=== PATIENT | male | born 1980 | race Hispanic/Latino ===

== ENCOUNTER 2020-06-28 12:59 | Emergency (ER) | payer SELFPAY ==
--- NOTE | 2020-06-28 14:16 | ED.PDOC ---
History of Present Illness - General Chief Complaint: Respiratory Problem Stated Complaint: congestion, cough Time Seen by Provider: 06/28/20 13:37 Source: patient, family Exam Limitations: no limitations - History of Present Illness Initial Comments: 3D SOB, COUGH, NASAL CONGESTION. NO TOBACCO USE. NO H/O ASTHMA, COPD. Timing/Duration: constant Severity: moderate Improving Factors: nothing Worsening Factors: nothing Associated Symptoms: cough, shortness of breath Allergies/Adverse Reactions: Allergies Penicillins Allergy (Verified 06/28/20 13:52) Home Medications: Ambulatory Orders Levofloxacin [Levaquin] 750 mg PO DAILY 5 Days #5 tab 06/28/20 Review of Systems - Review of Systems Constitutional: Denies: chills, fever EENTM: States: nose congestion. Denies: ear pain, throat pain Respiratory: States: cough, short of breath Cardiology: Denies: chest pain, palpitations Gastrointestinal/Abdominal: Denies: abdominal pain, nausea Genitourinary: States: no symptoms reported Musculoskeletal: Denies: back pain, joint pain, muscle pain Skin: States: no symptoms reported Neurological: States: no symptoms reported Endocrine: States: no symptoms reported Hematologic/Lymphatic: States: no symptoms reported All other Systems: Reviewed and Negative Past Medical History (General) - Patient Medical History Surgical History: no surgical history - Vaccination History Hx Influenza Vaccination: No Hx Pneumococcal Vaccination: No - Activities of Daily Living Hospice Agency (if applicable):: None - Female History Patient : No Family Medical History - Family History Mother Family History: Unknown Physical Exam - Physical Exam General Appearance: Alert, Other - UNCOMFORTABLE Eye Exam: bilateral normal Ears, Nose, Throat: hearing grossly normal, normal ENT inspection, normal pharynx Neck: non-tender, full range of motion, supple Respiratory: lungs clear, normal breath sounds, no respiratory distress Cardiovascular/Chest: regular rate, rhythm, no murmur Peripheral Pulses: radial,right: 2+, radial,left: 2+ Gastrointestinal/Abdominal: non tender, soft Rectal Exam: deferred Back Exam: no CVA tenderness Extremity: normal range of motion, normal inspection Neurologic: alert, normal mood/affect Skin Exam: normal color, warm/dry Lymphatic: no adenopathy Progress - Results/Orders Results/Orders: COVID, FLU, AND STREP NEG. CXR POS B BASILR OPACITIES, CONCERNING FOR PNE. PT'S DAUGHTER HAS SIMILAR SX (DX'D WITH STREP THROAT IN ER TODAY) AND OTHER DAUGHTER WAS JUST DX'D WITH AND TREATED FOR PNE, THUS I WILL TREAT HIM FOR PNE. PENALLERGIC (ANAPHYLAXIS), THUS UP-TO-DATE RECOMMENDS LEVAQUIN 2ND LINE RX FOR OUTPT PNE. Departure - Departure Clinical Impression: Cough Pneumonia Qualifiers: Pneumonia type: due to unspecified organism Laterality: bilateral Lung location: lower lobe of lung Qualified Code(s): J18.9 - Pneumonia, unspecified organism Dyspnea Qualifiers: Dyspnea type: shortness of breath Qualified Code(s): R06.02 - Shortness of breath Disposition: Discharge to Home or Self Care Condition: Good Departure Forms: ED Discharge - Pt. Copy, Patient Portal Self Enrollment Instructions: Pneumonia, Adult (DC) Diet: resume usual diet Activity: increase activity as tolerated Prescriptions: Levofloxacin [Levaquin] 750 mg PO DAILY 5 Days #5 tab Home Medications: Ambulatory Orders Levofloxacin [Levaquin] 750 mg PO DAILY 5 Days #5 tab 06/28/20 Additional Instructions: Please see your regular doctor or return to the ER if you breathing is not improving over the next few days.
--- NOTE | 2020-06-28 14:41 | RAD ---
EXAM DESCRIPTION: Chest,1 View CLINICAL HISTORY: 39 years Male, SOB, COUGH, NASAL CONGESTION X 3D. COMPARISON: 06/10/2007 TECHNIQUE: Single view radiograph of the chest. IMPRESSION: Normal size cardiac silhouette. Mild opacification in the lung bases may represent atelectasis although pneumonia not excluded. CT chest may further evaluate as indicated. No pleural effusion or pneumothorax. Included osseous structures intact. Electronically signed by: Trevor Hernandez MD 06/28/2020 2:39 PM CDT
[2020-06-28 15:23] VITALS: O2SAT 98
[2020-06-28 15:59] VITALS: BP 128/79; TEMP 96.6
== END 2020-06-28 15:50 | disposition home or self-care (01) ==
LOC: ER 12:59
DX: J18.9 Pneumonia, unspecified organism (principal); Z20.828 Contact with and (suspected) exposure to other viral communicable diseases; Z88.1 Allergy status to other antibiotic agents

== ENCOUNTER 2020-09-21 16:07 | Emergency (ER) | payer SELFPAY ==
[2020-09-21 17:18] VITALS: O2SAT 97
[2020-09-21] MEDS ORDERED: ACETAMINOPHEN 325 MG TAB PO ONE (18:02)
--- NOTE | 2020-09-21 18:05 | ED.PDOC ---
History of Present Illness - General Chief Complaint: General Stated Complaint: cough, body aches, sore throat Time Seen by Provider: 09/21/20 18:00 Additional Information: Patient is a 39-year-old male who presents to the ED with chief complaint of muscle aches. Patient began with a mild sore throat yesterday and today he has myalgia, generalized weakness, subjective low-grade fever and chills. Patient with an occasional dry cough but denies chest pain or shortness of breath. Negative nausea, vomiting, abdominal pain. Patient is otherwise healthy and has no medical concerns. He has not been exposed to Covid as far as he knows. - History of Present Illness Allergies/Adverse Reactions: Allergies Penicillins Allergy (Verified 09/21/20 17:19) Home Medications: Ambulatory Orders Acetaminophen [Tylenol] 650 mg PO Q6H #50 tab 09/21/20 Albuterol Inhaler [Ventolin Hfa Inhaler] 2 puff INH Q4H PRN #1 inh 09/21/20 Review of Systems - Review of Systems Constitutional: States: chills, fever EENTM: States: throat pain Respiratory: States: cough. Denies: short of breath Cardiology: Denies: chest pain, palpitations Gastrointestinal/Abdominal: Denies: abdominal pain, nausea, vomiting Genitourinary: Denies: dysuria Musculoskeletal: States: muscle pain Skin: Denies: rash All other Systems: Reviewed and Negative Past Medical History (General) - Patient Medical History Hx Congestive Heart Failure: No Hx Gastroesophageal Reflux: Yes Surgical History: no surgical history - Vaccination History Hx Influenza Vaccination: No Hx Pneumococcal Vaccination: No - Activities of Daily Living Hospice Agency (if applicable):: None - Female History Patient is a Female of Child Bearing Age (10 -59 yrs old): No Patient : No Family Medical History - Family History Mother Family History: Unknown Physical Exam - Physical Exam General Appearance: Alert, Comfortable, No apparent distress, Well Developed, Well Nourished ENT Exam: normal ENT inspection, pharynx normal Neck: non-tender, full range of motion, supple, normal inspection Respiratory: chest non-tender, lungs clear, normal breath sounds, no respiratory distress, no accessory muscle use Cardiovascular/Chest: regular rate, rhythm, no edema, no gallop, no JVD, no murmur Extremity: non-tender, normal inspection Neurologic: 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 09/21/20 18:38 Patient reassessed and is feeling slightly better at this time. His chest x-ray is clear but he is Covid positive. I will discharge with Tylenol and albuterol and patient to rest and follow-up with his PCP. Vital signs stable, patient is NAD and looks clinically well and I believe is safe for discharge with outpatient follow-up. Follow-up instructions, discharge instructions and return to ED precautions discussed with patient. Patient voices understanding and willingness to comply with instructions. All laboratory and radiographic results have been discussed with the patient, and all questions answered. Patient is happy with plan. Departure - Departure Clinical Impression: COVID-19 Time of Disposition: 18:39 Disposition: Discharge to Home or Self Care Condition: Good Departure Forms: ED Discharge - Pt. Copy, Patient Portal Self Enrollment Instructions: Coronavirus Disease 2019 (COVID-19) Referrals: NATASHA DOYLE MD [Active Staff] - 1 Week Prescriptions: Acetaminophen [Tylenol] 650 mg PO Q6H #50 tab Albuterol Inhaler [Ventolin Hfa Inhaler] 2 puff INH Q4H PRN #1 inh PRN Reason: Shortness Of Breath/Wheezing Home Medications: Ambulatory Orders Acetaminophen [Tylenol] 650 mg PO Q6H #50 tab 09/21/20 Albuterol Inhaler [Ventolin Hfa Inhaler] 2 puff INH Q4H PRN #1 inh 09/21/20
--- NOTE | 2020-09-21 18:26 | RAD ---
EXAM: Chest,1 View CLINICAL INDICATION: Cough COMPARISON: 06/28/2020 FINDINGS: A single view of the chest was obtained. The heart size is normal. The pulmonary vascularity is unremarkable. The lungs are clear. There is no consolidation, infiltrate, pleural effusion, or pneumothorax. IMPRESSION: No evidence of active pulmonary disease. Electronically signed by: Amari Wong MD 09/21/2020 6:25 PM [employer]
[2020-09-21 18:56] VITALS: BP 117/76; TEMP 102.2
== END 2020-09-21 18:55 | disposition home or self-care (01) ==
LOC: ER 16:07
DX: U07.1 COVID-19 (principal); K21.9 Gastro-esophageal reflux disease without esophagitis; Z88.0 Allergy status to penicillin